=== PATIENT | male | born 1975 | race Caucasian/White ===

== ENCOUNTER → 2019-01-22 | Emergency (ER) | payer SELFPAY ==
[~2019-01-22] VITALS: Ht 177.8 cm; Wt 81.6 kg
--- OUTSIDE RECORDS SUMMARY | 2019-01-22 16:10 | XMS REPORT ---
Author Author AKIRA JAMES Organization [facility] Address [address] [place] [address] Care Team Providers Care [employer] Justice Name Role Phone AKIRA JAMES Unavailable PROBLEMS Unknown Problems ALLERGIES No Known Allergies ENCOUNTERS Encounter Location Date Diagnosis [facility] [address] [facility] [id number] [address] Jul, Active dental caries K02.9 and Disorder of teeth and supporting structures, unspecified K08.9 IMMUNIZATIONS No Known Immunizations SOCIAL HISTORY Never Assessed REASON FOR VISIT Generalized mouth pain started getting worse in the last couple months JStrasserRN PLAN OF CARE Activity Details Follow Up Se dentist as soon as possible. Reason: VITAL SIGNS Height 70 in 2018-08-11 Weight 175.0 lbs 2018-08-11 Temperature 97.1 degrees Fahrenheit 2018-08-11 Heart Rate 88 bpm 2018-08-11 Respiratory Rate 22 2018-08-11 BMI 25.11 kg/m2 2018-08-11 Blood pressure systolic 128 mmHg 2018-08-11 Blood pressure diastolic 80 mmHg 2018-08-11 MEDICATIONS Medication Instructions Dosage Frequency Start Date End Date Duration Status Zoloft 100 MG Orally Once a day 1 tablet 24h 30 day(s) Active RESULTS No Results PROCEDURES No Known procedures INSTRUCTIONS MEDICATIONS ADMINISTERED No Known Medications MEDICAL (GENERAL) HISTORY Type Description Date Surgical History No know Surgical history
--- OUTSIDE RECORDS SUMMARY | 2019-01-22 16:10 | XMS REPORT | Continuity of Care Document ---
Author Organization Unknown Address Unknown Allergies Active Description Code Type Severity Reaction Onset Reported/Identified Relationship to Patient Clinical Status Yes NO KNOWN DRUG ALLERGIES UNKNOWN NO KNOWN DRUG ALLERG Medications There is no data. Problems Date Dx Coded Attending Type Code Diagnosis Diagnosed By 01/14/2015 RAVINDER HERRERA 300.02 AN GEN ANXIETY 01/14/2015 RAVINDER HERRERA 300.23 AN SOCIAL PHOBIA 01/14/2015 RAVINDER HERRERA 300.3 AN OBCESS COMP DIS 01/14/2015 RAVINDER HERRERA 312.34 INTERMITTENT EXPLOSIVE DISORDER 01/14/2015 RAVINDER HERRERA 314.01 ADHD COMBINED 04/19/2017 Gabo Shaw 296.80 BIPOLAR DISORDER, UNSPECIFIED 04/19/2017 Gabo Shaw F31.9 BIPOLAR DISORDER, UNSPECIFIED Procedures Code [place] [address] PSYCH DIAGNOSTIC EVALUATION 01/14/2015 Results There is no data. Encounters ACCT No. Visit Date/Time Discharge Status Pt. Type Provider Facility Loc./Unit Complaint [id number] 01/14/2015 14:55:00 01/14/2015 23:59:59 [facility] Outpatient RAVINDER HERRERA [id number] 04/19/2017 14:18:00 04/19/2017 15:32:00 DIS Outpatient Valeria [facility] ER [id number] 08/11/2018 10:40:00 08/11/2018 23:59:59 [facility] Outpatient COLLEEN ETIENNE LAC [facility]
[2019-01-22 16:30] VITALS: BP 134/83
--- NOTE | 2019-01-22 16:33 | NUR ---
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
== END | disposition left against medical advice (07) ==
LOC: ER FS 15:55
DX: K04.7 Periapical abscess without sinus (principal)
CPT/HCPCS: 99282

== ENCOUNTER 2019-02-28 15:18 | Emergency (ER) | payer SELFPAY ==
[~2019-02-28] VITALS: Ht 177.8 cm; Wt 81.6 kg
--- OUTSIDE RECORDS SUMMARY | 2019-02-28 15:23 | XMS REPORT | Continuity of Care Document ---
Author Organization Unknown Address Unknown Allergies There is no data. Medications There is no data. Problems Date Dx Coded Attending Type Code Diagnosis Diagnosed By 01/14/2015 FLACO HERRERA 300.02 AN GEN ANXIETY 01/14/2015 FLACO HERRERA 300.23 AN SOCIAL PHOBIA 01/14/2015 FLACO HERRERA 300.3 AN OBCESS COMP DIS 01/14/2015 FLACO HERRERA 312.34 INTERMITTENT EXPLOSIVE DISORDER 01/14/2015 FLACO HERRERA 314.01 ADHD COMBINED 01/24/2019 AICHA CASTRO MD Ot K04.7 PERIAPICAL ABSCESS WITHOUT SINUS 01/24/2019 AICHA CASTRO MD Ot K04.7 PERIAPICAL ABSCESS WITHOUT SINUS Procedures Code [place] [address] PSYCH DIAGNOSTIC EVALUATION 01/14/2015 Results There is no data. Encounters ACCT No. Visit Date/Time Discharge Status Pt. Type Provider Facility Loc./Unit Complaint [id number] 01/30/2019 16:10:00 01/30/2019 23:59:59 [facility] Outpatient COLLEEN ETIENNE LAC [facility] [id number] 01/22/2019 15:55:00 01/22/2019 23:59:59 CLS Emergency AICHA CASTRO MD [facility] ER FS INFECTED TEETH, DENTAL PAIN [id number] 01/14/2015 14:55:00 01/14/2015 23:59:59 [facility] Outpatient FLACO HERRERA
[2019-02-28 15:55] VITALS: BP 122/90
[2019-02-28] MEDS ORDERED: ZOLOFT (16:36)
--- NOTE | 2019-02-28 17:12 | ED Lower Extremity ---
General Chief Complaint: Lower Extremity Stated Complaint: RT FOOT SWELLING Nursing Triage Note: Pt to ED ambulatory reporting right foot keeps swelling for 2 weeks if he has to be on his feet. When swollen decreased sensation reported. Pt has no presence of swelling and no pain at this time. Pt states he can get swelling down if he stays off feet. 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 Nursing Sepsis Screen: No Definite Risk Source: patient Exam Limitations: no limitations History of Present Illness Date Seen by Provider: Feb 28, 2019 Time Seen by Provider: 16:54 Initial Comments Patient resents to ER by private conveyance with chief complaint that his right foot and leg have swollen for the past several weeks throughout the day as he stands on them and get better when he lays down. Is not having any redness pain or lingering swelling at this time. He has not seen a doctor for it. He has multiple perdomo all over his foot which he states are from him scratching. He says he also has some numbness and tingling in his lateral toes and was told once that his labs showed his blood sugar was extremely high but he doesn't remember the number. He was told to follow-up with his doctor for the results and how to deal with it and he says he never went back. Allergies and Home Medications Allergies Coded Allergies: No Known Drug Allergies (Unverified , 02/28/19) Patient Home Medication List Home Medication List Reviewed: Yes Review of Systems Constitutional: No chills, No diaphoresis EENTM: No hearing loss, No double vision Respiratory: No cough, No short of breath Cardiovascular: see HPI; No chest pain; edema Gastrointestinal: No abdominal pain, No nausea, No vomiting Genitourinary: No discharge, No dysuria Musculoskeletal: No back pain, No joint pain Past Gzolizr-Canfqv-Zgvnio Hx Patient Social History Alcohol Use: Denies Use Recreational Drug Use: No Type Used: Cigarettes 2nd Hand Smoke Exposure: Yes Recent Foreign Travel: No Contact w/Someone Who Travel: No Recent Infectious Disease Expo: No Recent Hopitalizations: No Physical Abuse: No Sexual Abuse: No Mistreated: No Fear: No Seasonal Allergies Seasonal Allergies: No Past Medical History Surgeries: No Respiratory: No Cardiac: No Neurological: No Genitourinary: No Gastrointestinal: No Musculoskeletal: No Endocrine: No HEENT: No Cancer: No Psychosocial: No Integumentary: No Blood Disorders: No Physical Exam Vital Signs Vital Signs - First Documented 02/28/19 15:55 Temp 98.1 Pulse 72 Resp 18 B/P (MAP) 122/90 (101) Pulse Ox 97 O2 Delivery Room Air Capillary Refill : Less Than 3 Seconds Height, Weight, BMI Height: 5'10.00" Weight: 180lbs. oz. 81.093716my; BMI Method:Stated General Appearance: WD/WN, other (anxious, twitchy) HEENT: PERRL/EOMI Neck: full range of motion, normal inspection Cardiovascular: normal peripheral pulses, regular rate, rhythm, no edema Respiratory: no respiratory distress, no accessory muscle use Ankles: bilateral ankle non-tender, bilateral ankle normal range of motion, bilateral ankle no evidence of injury Feet: bilateral foot non-tender, bilateral foot normal range of motion, bilateral foot no evidence of injury, bilateral foot other (bilateral feet and ankles have no swelling or edema. There are several punctate scars of various ages located over the veins of bilateral feet and ankles. No erythema. There is some thick black soiling on the base of both feet but no evidence of wounds or inflammation.) Neurologic/Psychiatric: no motor/sensory deficits, alert, oriented x 3 Progress/Results/Core Measures Results/Orders Vital Signs/I&O 02/28/19 15:55 Temp 98.1 Pulse 72 Resp 18 B/P (MAP) 122/90 (101) Pulse Ox 97 O2 Delivery Room Air Blood Pressure Mean: 101 Progress Progress Note : Time: 17:10 Progress Note We discussed proper foot care and the importance of shoes. We discussed compression stockings and management for gravity dependent edema. We also suggested highly that if his blood sugar was high over a year ago but he should follow-up with a primary care doctor. He states that one of his barriers to following with a doctor is that he does not have insurance. We encouraged him to go to [facility] as they have income based medical access. We answered all of his questions and he said he was okay with the plan. After the provider left the room he came out of the room and spoke to nursing telling the nursing staff that he was going to leave since we were going to do anything to help him and left prior to receiving his discharge paperwork. Departure Impression Primary Impression: Dependent edema Disposition: 01 HOME, SELF-CARE Condition: Stable Departure-Patient Inst. Decision time for Depature: 17:11 Referrals: NO,LOCAL PHYSICIAN (PCP) Primary Care Physician [facility] Patient Instructions: Dependent Edema (DC) Add. Discharge Instructions: When you not on your feet propped him up above the level of your heart. When you're standing up or walking around you should be wearing compression stockings to help decrease the swelling. Plan to follow up with a primary care doctor. All discharge instructions reviewed with patient and/or family. Voiced understanding. TALISHA ALICEA Feb 28, 2019 17:12
== END 2019-02-28 17:02 | disposition left against medical advice (07) ==
LOC: EDUNIT# 15:18 → ER FS 15:19
DX: R60.0 Localized edema (principal); Z77.22 Contact with and (suspected) exposure to environmental tobacco smoke (acute) (chronic)
CPT/HCPCS: 99283